=== PATIENT | female | born 1965 | race Caucasian/White ===

== ENCOUNTER → 2017-04-25 08:15 | Outpatient (CLI) | payer MEDICAID, SELFPAY ==
--- NOTE | 2017-04-25 08:20 | US_ITS ---
US abdomen limited: HISTORY: ITS.REASON: RUQ PAIN ORDERING PHYSICIAN: Adam Zeng MD PATIENT AGE: 51 years COMPARISON: None FINDINGS: PANCREAS: Unremarkable. No obvious mass or abnormal fluid collection. No ductal dilatation LIVER: No focal liver lesions demonstrated. Homogeneous echogenicity. No intrahepatic biliary ductal dilatation evident RIGHT KIDNEY: Unremarkable. Normal size and echogenicity. No hydronephrosis GALLBLADDER: No gallstones, gallbladder wall thickening, pericholecystic fluid, or biliary dilatation. IMPRESSION: Negative gallbladder/right upper quadrant ultrasound
== END ==
PROVIDERS: Family Provider Internal Medicine Adolescent Medicine; PCP Nurse Practitioner Family; Visit Provider Internal Medicine Adolescent Medicine
DX: R10.11 Right upper quadrant pain (principal)
CPT/HCPCS: 76705

== ENCOUNTER → 2017-05-02 10:17 | Outpatient (CLI) | payer MEDICAID, SELFPAY ==
--- NOTE | 2017-05-02 10:23 | NM_ITS ---
NM hepatobiliary w pharm HISTORY: ITS.REASON: RUQ PAIN ORDERING PHYSICIAN: Adam Zeng MD PATIENT AGE: 51 years COMPARISON: None DOSE: 8.43 mCi technetium Choletec Fatty meal with ensure No pain reported with fatty meal FINDINGS: Homogeneous activity is present within the hepatic parenchyma. Activity is present in the gallbladder by 15 minutes. Activity is present in the small bowel by 15 minutes. The gallbladder ejection fraction is calculated to be 68% The patient did not report pain or other symptoms with fatty meal. IMPRESSION: Unremarkable hepatobiliary scan and gallbladder ejection fraction. No evidence of common or cystic duct obstruction with normal gallbladder ejection fraction
== END ==
PROVIDERS: Family Provider Internal Medicine Adolescent Medicine; PCP Nurse Practitioner Family; Visit Provider Internal Medicine Adolescent Medicine
DX: R10.11 Right upper quadrant pain (principal)
CPT/HCPCS: 78227; A9537

== ENCOUNTER → 2017-05-20 13:46 | Outpatient (CLI) | payer MEDICAID, SELFPAY ==
--- NOTE | 2017-05-20 13:52 | XR_ITS ---
XR chest 2V HISTORY: ITS.REASON: COUGH,UPPER RT RIB PAIN, ORDERING PHYSICIAN: Rich Hare MD PATIENT AGE: 51 years COMPARISON: None available FINDINGS: The cardiomediastinal silhouette and pulmonary vascularity are within normal limits. The lungs are clear without infiltrates, suspicious nodules, or pleural effusions. No acute bony abnormalities. IMPRESSION: Negative chest, no acute finding
== END ==
PROVIDERS: PCP Internal Medicine Adolescent Medicine; Visit Provider Surgery
DX: Z01.818 Encounter for other preprocedural examination (principal); R13.10 Dysphagia, unspecified; R07.89 Other chest pain; R10.9 Unspecified abdominal pain
CPT/HCPCS: 71046

== ENCOUNTER 2017-05-27 09:37 | Day surgery (SDC) | payer MEDICAID, SELFPAY ==
[2017-05-26 14:56] VITALS: BMI 28.9
[2017-05-27 10:46] VITALS: BP 125/73; PULSE 83; RESP 18; TEMP 37.2; O2SAT 98
[2017-05-27 11:32] LABS: HCG,Quantitative 0 mIU/mL
[2017-05-27 12:24] VITALS: BP 115/68; PULSE 81; RESP 16; TEMP 36.6; O2SAT 97
--- NOTE | 2017-05-27 12:26 | P.PCN_ITS ---
- Procedure: Date: 05/27/17 Procedure Performed:: Esophagogastroduodenoscopy with biopsies Indications:: Patient is a 51-year-old female referred for upper endoscopy. She states that over the past month or so she has had intermittent sporadic right lateral flank thoracoabdominal pain. She underwent gallbladder ultrasound and HIDA scan which were unremarkable. Symptoms are not necessarily related to eating. She was sent for surgical consultation for upper endoscopy. I did order a chest x- ray which was unremarkable for any acute process. Performing Provider:: Rich Hare MD Referring Provider:: Karri Sedation:: Propofol Procedure:: Patient was taken to same-day endoscopy procedure room. She was positioned in a lateral decubitus position. Adequate intravenous sedation was achieved. Olympus endoscope was inserted via the oropharynx and advanced through the esophagus. Overall the esophagus appeared relatively unremarkable. She did have a moderate sliding hiatal hernia. Stomach was cannulated and insufflated. Retroflexion within the stomach revealed a moderate hiatal hernia. Gastric antral mucosal biopsies obtained for CLOtest for H. pylori. She had a couple punctate healing erosions versus ulcerations in the prepyloric location. Biopsies were obtained. Pylorus was traversed and duodenal bulb and duodenal sweep appeared unremarkable. A couple biopsies were obtained within the duodenum. Biopsy was obtained at the gastroesophageal junction and a couple of esophageal biopsies were obtained for microscopic analysis for esophagitis. Endoscope was withdrawn Findings:: Moderate hiatal hernia Punctate prepyloric erosions versus healing ulcerations Recommendations:: Follow-up on histopathology and H. pylori status. PPIs may be beneficial. If symptoms persist may consider CT scan abdomen pelvis possibly including chest. Complications:: None Estimated blood obtained (mL): 3
[2017-05-27 12:34] VITALS: BP 116/63; PULSE 76; RESP 16; TEMP 36.6; O2SAT 96
[2017-05-27 12:48] VITALS: BP 127/88; PULSE 66; RESP 18; TEMP 36.6; O2SAT 95
--- NOTE | 2017-05-27 12:48 | P.PN_ITS ---
[facility] Anesthesia Checklist - Patient Identification Patient Identification: Arm Band - Structural Data Admitted From: Home Planned Operative Procedure/s: egd Consent for Planned Operative Procedure(s) Verified: Yes Verified Documents: Surgical Consent, History and Physical - NPO Status Verified Time NPO: 00:00 - Additional verifications Anesthesia Reactions: No - Airway Assessment C-Spine Mobility Assessed: Yes (mp2) TMJ Mobility Assessed: Yes Dentition: Good Dentition - Neurological Assessment Level of Consciousness: Awake, Alert - Anesthesia Plan Anesthesia Risk discussed: Yes Anesthesia Plan: Verified ASA Class: II Anesthesia Type: MAC [facility] Anesthesia HX I have reviewed the patient's past medical history: Yes Medical History: Reports:: Hyperlipidemia, Hypertension Denies:: Diabetes Mellitus Type 1, Diabetes Mellitus Type 2, Internal Pacemaker, Lung Disease, Seizures Other Medical History: Reports: Hypothyroidism Laterality Cases: Bilateral: Tonsillectomy Other Surgeries: Yes: Colonoscopy. No: Pacemaker *Family Hx:: Hypertension, Cancer
== END 2017-05-27 12:48 | disposition home or self-care (01) ==
LOC: OUTP 09:38
PROVIDERS: Family Provider Internal Medicine Adolescent Medicine; PCP Internal Medicine Adolescent Medicine; Visit Provider Surgery
PROC: 0DJ08ZZ Inspection of Upper Intestinal Tract, Via Natural or Artificial Opening Endoscopic (ICD-10-PCS; CPT 43235; principal; 2017-05-27 10:30)
DX: K92.89 Other specified diseases of the digestive system (principal); K44.9 Diaphragmatic hernia without obstruction or gangrene
CPT/HCPCS: 43239; 84702; 87339

== ENCOUNTER → 2017-10-30 09:59 | Outpatient (CLI) | payer MEDICAID, SELFPAY ==
[2017-10-30 12:46] LABS: Alanine Aminotransferase 19 U/L (12-78); Albumin Level 3.3 gm/dL (3.4-5.0); Alkaline Phosphatase 81 U/L (46-116); Aspartate Amino Transferase 13 U/L (15-37); Bilirubin,Total 0.4 mg/dL (0.2-1.0); Blood Urea Nitrogen 13 mg/dL (7-18); Calcium 8.6 mg/dL (8.5-10.1); Carbon Dioxide 24 mmol/L (21.0-32.0); Chloride 105 mmol/L (98-107); Chol/HDL Ratio 2.7 (1-3.5); Cholesterol 133 mg/dL (140-200); Creatinine,Serum 0.66 mg/dL (0.55-1.02); Estimated Glomerular Filt Rate 94 ml/min (>60); GFR (African American) 114 ML/MIN (>60); Globulin 3.4 gm/dl (1.3-3.2); Glucose 94 mg/dL (74-106); HDL Cholesterol 50 mg/dL (29-89); LDL Cholesterol 48 mg/dL (0-130); Sodium 140 mmol/L (136-145); Total Protein,Serum 6.7 gm/dL (6.4-8.2); Triglycerides 176 mg/dL (30-200); VLDL Cholesterol 35 mg/dL (0-40)
== END ==
PROVIDERS: PCP Internal Medicine Adolescent Medicine; Visit Provider Nurse Practitioner Family
DX: E78.5 Hyperlipidemia, unspecified (principal); E03.9 Hypothyroidism, unspecified
CPT/HCPCS: 36415; 80053; 80061; 84443

== ENCOUNTER → 2017-11-07 08:49 | Outpatient (CLI) | payer MEDICAID, SELFPAY ==
--- NOTE | 2017-11-07 08:51 | MM_ITS ---
MM Dig screening mamm BI w/CAD ORDERING PHYSICIAN : Yomaira Vivas PATIENT AGE: 52 years GENDER: Female COMPARISON: November 2015 and 2014 prior mammogram studies INDICATION: ITS.REASON: SCREENING 52. -control pills. No new complaints. Noncontributory family history TECHNIQUE: Standard CC and MLO images were obtained. R2 CAD reviewed. FINDINGS: Mild asymmetry with mild to moderate residual fibroglandular elements extending from central breast towards upper outer quadrant of breast bilaterally. Similar pattern to previous studies with no new dominant mass nor suspicious calcification nor significant architectural distortion.. . CAD computer review highlights no areas of concern either a similar architecture. IMPRESSION: Stable bilateral mammogram. No new areas of concern Bilateral follow-up one year recommended. BI-RADS Category: 1 Negative RECOMMENDED FOLLOW-UP: 1YR 1 YEAR FOLLOW-UP (A letter has been sent to the patient regarding results of the study.)
== END ==
PROVIDERS: PCP Nurse Practitioner Family; Visit Provider Nurse Practitioner Family
DX: Z12.31 Encounter for screening mammogram for malignant neoplasm of breast (principal)
CPT/HCPCS: 77067

== ENCOUNTER → 2018-11-30 09:35 | Outpatient (CLI) | payer MEDICAID, SELFPAY ==
[2018-11-30 11:22] LABS: Alanine Aminotransferase 13 U/L (12-78); Albumin Level 3.3 gm/dL (3.4-5.0); Alkaline Phosphatase 77 U/L (46-116); Anion Gap 16.8 mEq/L (5-15); Aspartate Amino Transferase 11 U/L (15-37); Bilirubin,Total 0.3 mg/dL (0.2-1.0); Blood Urea Nitrogen 11 mg/dL (7-18); Calcium 8.7 mg/dL (8.5-10.1); Carbon Dioxide 23 mmol/L (21.0-32.0); Chloride 104 mmol/L (98-107); Cholesterol 144 mg/dL (140-200); Creatinine,Serum 0.57 mg/dL (0.55-1.02); Estimated Glomerular Filt Rate 111 ml/min (>60); GFR (African American) 134 ML/MIN (>60); Globulin 3.4 gm/dl (1.3-3.2); Glucose 106 mg/dL (74-106); HDL Cholesterol 48 mg/dL (29-89); LDL Cholesterol 69 mg/dL (0-130); Potassium 3.8 mmoL/L (3.5-5.1); Sodium 140 mmol/L (136-145); Thyroid Stimulating Hormone 3.08 uIU/ml (0.358-3.740); Total Protein,Serum 6.7 gm/dL (6.4-8.2); Triglycerides 137 mg/dL (30-200); VLDL Cholesterol 27 mg/dL (0-40)
== END ==
PROVIDERS: Visit Provider Nurse Practitioner Family
DX: E78.5 Hyperlipidemia, unspecified (principal); E03.9 Hypothyroidism, unspecified
CPT/HCPCS: 36415; 80053; 80061; 84443

== ENCOUNTER → 2019-12-02 09:13 | Outpatient (CLI) | payer OTHER, SELFPAY ==
[2019-12-02 09:48] LABS: Basophils # 0.1 K/mm3 (0-0.2); Basophils % 0.7 % (0.1-2.0); Eosinophils # 0.1 K/mm3 (0.0-0.4); Eosinophils % 0.5 % (0.1-12.0); Hematocrit 41.3 % (37.0-47.0); Hemoglobin 14.3 g/dL (12.2-16.2); Lymphocytes # 1.9 K/mm3 (0.7-4.5); Lymphocytes % 18.2 % (10-50); Mean Corpuscular HGB Conc 34.5 g/dL (31.8-35.4); Mean Corpuscular Hemoglobin 30.2 pg (27.0-31.2); Mean Corpuscular Volume 87.6 fl (81-99); Mean Platelet Volume 6.9 fl (7.4-10.4); Monocytes # 0.4 K/mm3 (0.1-1.0); Monocytes % 4.3 % (1.7-9.3); Neutrophils # 7.8 K/mm3 (1.8-7.8); Neutrophils % 76.4 % (37.0-80.0); Platelet Count 309 K/mm3 (142-424); Red Blood Count 4.72 M/mm3 (4.20-5.40); Red Cell Distribution Width 13.1 % (11.5-17.5); White Blood Count 10.2 K/mm3 (4.8-10.8)
[2019-12-02 11:08] LABS: Chloride 103 mmol/L (98-107); Potassium 4.3 mmoL/L (3.5-5.1); Sodium 136 mmol/L (136-145)
[2019-12-02 11:10] LABS: Alanine Aminotransferase 10 U/L (12-78); Aspartate Amino Transferase 22 U/L (14-36); Blood Urea Nitrogen 10 mg/dl (7-17); Estimated Glomerular Filt Rate 104 ml/min (>60); GFR (African American) 126 ML/MIN (>60)
[2019-12-02 11:11] LABS: Albumin Level 3.8 g/dl (3.5-5.0); Albumin/Globulin Ratio 1.4 (1.1-1.8); Alkaline Phosphatase 75 U/L (38-126); Anion Gap 11.3 mEq/L (5-15); Bilirubin,Total 0.7 mg/dl (0.2-1.3); Calcium 9.2 mg/dl (8.4-10.2); Carbon Dioxide 26 mmol/L (22.0-30.0); Cholesterol 153 mg/dl (140-200); Globulin 2.8 g/dL (1.3-3.2); Glucose 107 mg/dl (74-100); Total Protein,Serum 6.6 g/dl (6.3-8.2); Triglycerides 160 mg/dl (30-150); VLDL Cholesterol 32 mg/dL (0-40)
[2019-12-02 11:41] LABS: Thyroid Stimulating Hormone 2.53 uIU/mL (0.465-4.68)
[2019-12-02 17:43] LABS: Chol/HDL Ratio 2.8 (1-3.5); HDL Cholesterol 55 mg/dl (40-60)
== END ==
PROVIDERS: Visit Provider Nurse Practitioner Family
DX: E78.5 Hyperlipidemia, unspecified (principal); E03.9 Hypothyroidism, unspecified; R30.0 Dysuria; R31.1 Benign essential microscopic hematuria
CPT/HCPCS: 36415; 80053; 80061; 84443; 85025

== ENCOUNTER → 2019-12-09 09:24 | Outpatient (CLI) | payer OTHER, SELFPAY ==
--- NOTE | 2019-12-09 09:26 | MM_ITS ---
PROCEDURE: MM DIG SCREENING MAMM BI W/CAD Digital Breast Tomosynthesis Included CLINICAL INDICATION: SCREENING There is no personal or family history of breast cancer. The patient currently is on control pills. COMPARISON: MG DMSB DIG MAMM-SCREEN FLOYD from 11/18/2014 MG DMSB DIG MAMM-SCREEN FLOYD from 11/20/2015 MG SCBI MM Dig screening mamm BI w/CAD from 11/07/2017 TECHNIQUE: Standard CC and MLO images and 3D Tomosynthesis was obtained. R2 CAD reviewed. FINDINGS: Scattered fibroglandular densities are seen in both breast on a background of primarily fatty breast parenchyma. Glandular elements are most prominent upper outer quadrants. There is no suspicious lesion and no suspicious microcalcifications. IMPRESSION: Fibrofatty parenchyma with no suspicious lesions seen BI-RAD Category: 1 Negative FOLLOW-UP: 1YR 1 Year Follow-up (A letter has been sent to the patient regarding results of the study.) Dictated by: Dr. Silver Tolliver MD 12/14/2019 08:30 Dr. Silver Tolliver MD in [place] 12/14/2019 08:30
== END ==
PROVIDERS: PCP Internal Medicine Adolescent Medicine; Visit Provider Internal Medicine Adolescent Medicine
DX: Z12.31 Encounter for screening mammogram for malignant neoplasm of breast (principal)
CPT/HCPCS: 77063; 77067

== ENCOUNTER → 2020-12-28 10:29 | Outpatient (CLI) | payer OTHER, SELFPAY ==
[2020-12-28 11:06] LABS: Basophils # 0.1 K/mm3 (0-0.2); Eosinophils # 0.1 K/mm3 (0.0-0.4); Hematocrit 41.3 % (37.0-47.0); Hemoglobin 13.7 g/dL (12.2-16.2); Lymphocytes # 2.2 K/mm3 (0.7-4.5); Lymphocytes % 26.5 % (10-50); Mean Corpuscular HGB Conc 33.2 g/dL (31.8-35.4); Mean Corpuscular Hemoglobin 30.2 pg (27.0-31.2); Mean Platelet Volume 7.1 fl (7.4-10.4); Monocytes # 0.3 K/mm3 (0.1-1.0); Monocytes % 3.9 % (1.7-9.3); Neutrophils # 5.6 K/mm3 (1.8-7.8); Neutrophils % 67.6 % (37.0-80.0); Platelet Count 346 K/mm3 (142-424); Red Blood Count 4.54 M/mm3 (4.20-5.40); Red Cell Distribution Width 13.2 % (11.5-17.5); White Blood Count 8.3 K/mm3 (4.8-10.8)
[2020-12-28 11:41] LABS: Alanine Aminotransferase 11 U/L (12-78); Albumin Level 3.7 g/dl (3.5-5.0); Albumin/Globulin Ratio 1.2 (1.1-1.8); Alkaline Phosphatase 88 U/L (38-126); Anion Gap 12.8 mEq/L (5-15); Aspartate Amino Transferase 22 U/L (14-36); Bilirubin,Total 0.8 mg/dl (0.2-1.3); Blood Urea Nitrogen 9 mg/dl (7-17); Calcium 8.9 mg/dl (8.4-10.2); Carbon Dioxide 23 mmol/L (22.0-30.0); Chloride 106 mmol/L (98-107); Chol/HDL Ratio 2.9 (1-3.5); Cholesterol 143 mg/dl (140-200); Estimated Glomerular Filt Rate 128 ml/min (>60); GFR (African American) 155 ML/MIN (>60); Glucose 102 mg/dl (74-100); HDL Cholesterol 50 mg/dl (40-60); Potassium 3.8 mmoL/L (3.5-5.1); Sodium 138 mmol/L (136-145); Total Protein,Serum 6.7 g/dl (6.3-8.2); Triglycerides 118 mg/dl (30-150); VLDL Cholesterol 24 mg/dL (0-40)
[2020-12-28 11:52] LABS: Direct LDL Cholesterol 71.29 mg/dL (100-129)
[2020-12-28 12:13] LABS: Thyroid Stimulating Hormone 2.83 uIU/mL (0.465-4.68)
== END ==
PROVIDERS: PCP Internal Medicine Adolescent Medicine; Visit Provider Internal Medicine Adolescent Medicine
DX: Z00.00 Encounter for general adult medical examination without abnormal findings (principal); E03.9 Hypothyroidism, unspecified; E78.5 Hyperlipidemia, unspecified
CPT/HCPCS: 36415; 80053; 80061; 84443; 85025

== ENCOUNTER → 2021-02-20 08:23 | Outpatient (CLI) | payer OTHER, SELFPAY ==
--- NOTE | 2021-02-20 08:25 | MM_ITS ---
PROCEDURE INFORMATION: Exam: MG Bilateral Screening 3D Mammography Exam date and time: 02/20/2021 8:25 AM Age: 55 years old Clinical indication: Encounter for screening mammogram for malignant neoplasm of breast TECHNIQUE: Imaging protocol: Bilateral screening tomosynthesis and 2D mammography including computer-aided detection (CAD) when performed. COMPARISON: 1. MG MM DIG SCREENING MAMM BI W/CAD 12/09/2019 9:38 AM 2. MG SCBI MM Dig screening mamm BI w/CAD 11/07/2017 9:02 AM 3. MG DMSB DIG MAMM-SCREEN FLOYD 11/20/2015 9:28 AM FINDINGS: MAMMOGRAPHY: Breast composition: There are scattered areas of fibroglandular density. Mass: No suspicious masses. Architectural distortion: No suspicious distortion. Calcifications: No suspicious calcifications. Asymmetric density: None. Skin thickening: None. Axillary adenopathy: None. IMPRESSION: No mammographic evidence of malignancy. Annual screening is recommended unless otherwise clinically indicated. ASSESSMENT: BI-RADS Category 1: Negative
== END ==
PROVIDERS: PCP Internal Medicine Adolescent Medicine; Visit Provider Internal Medicine Adolescent Medicine
DX: Z12.31 Encounter for screening mammogram for malignant neoplasm of breast (principal)
CPT/HCPCS: 77063; 77067

== ENCOUNTER 2021-06-30 10:30 | Emergency (ER) | payer OTHER, SELFPAY ==
[2021-06-30] VITALS (11 sets, daily range): BP systolic 108–145; BP diastolic 55–77; PULSE 57–78; RESP 16–18; TEMP 36.5; O2SAT 95–100; BMI 29.2
--- NOTE | 2021-06-30 10:38 | HMH.EDGENADL ---
ED Disposition Clinical Impression: Peripheral vertigo Qualifiers: Laterality: left Qualified Code(s): H81.392 - Other peripheral vertigo, left ear Disposition: Home, Self-Care Condition on Discharge: Good Instructions: DI for Vertigo Additional Instructions: Antivert, Reglan, diazepam as prescribed. Follow-up with primary care provider, call Friday to make appointment. Return if symptoms worsen. Additional instructions for CONTROLLED SUBSTANCES: You have been prescribed a medication that is a controlled substance. Controlled substances include pain medications known as opiates and sedative nerve medications known as benzodiazepines. Tramadol, fioricet, and gabapentin are also controlled substances. Some common opiates include: Codeine (such as Tylenol #3) Hydrocodone (Vicodin, Lortab, Lorcet, Molina) Oxycodone (Percocet, Percodan, Oxycodone, Oxy IR) Some common benzodiazepines include: Diazepam (Valium) Lorazepam (Ativan) Alprazolam (Xanax) Clonazepam (Klonopin) Oxazepam (Serax) All of these controlled substances are highly addictive and frequently abused. Misuse can and frequently does lead to addiction as well as overdose and . Medication should be stored in a locked cabinet or other secure storage unit. Do not store the medication in a motor vehicle. Short term supplies, 3 days or less, are prescribed because of the highly addictive nature of the medication. Any of the controlled substance medication NOT taken should be disposed of properly and NOT SAVED. The recommended method of disposing of unused medications is: Place the medicines in a sealable plastic bag. If the medicine is a solid, crush it or add water to dissolve it. Add something undesirable (cat litter, coffee grounds, etc.) Dispose of sealed bag in household trash Do not flush or pour unused medicines down a sink or drain. Controlled substances should not be shared, given away or sold. Because of the addictive nature and frequent abuse, these medications are sometimes stolen. These medications should be kept in a safe place where they cannot be stolen. Do not keep them in your car or purse. Lost or stolen prescriptions for controlled substances WILL NOT BE REFILLED in this emergency department, regardless of whether a police report was filed. Prescriptions: Meclizine HCl [Antivert 25mg tablet] 25 mg PO TIDP PRN #15 tab PRN Reason: Vertigo Transmission Status: Pending to [facility] diazePAM [Diazepam 2mg tablets] 2 mg PO TIDP PRN #15 tablet PRN Reason: Vertigo Transmission Status: Sent to [facility] Metoclopramide HCl [Reglan 5mg Tablet] 5 mg PO TIDP PRN #10 tab PRN Reason: Nausea And Vomiting Transmission Status: Pending to [facility] Referrals: Adam Zeng MD [Primary Care Provider] - - Critical Care Critical Care Time: No Attestation: On , the high probability of a clinically significant, sudden or life threatening deterioration of the following system(s) required my full and direct attention, intervention and personal management. The time I documented below is in addition to time spent performing reported procedures but includes the following listed in this critical care notation. Medical Decision Making - Gonsalo Inquiry Pt receiving controlled substance: Yes Gonsalo was queried for this patient: Yes Risks and benefits of using a controlled substance: were discussed with pt by me Vital Signs: 06/30/21 10:31 06/30/21 11:00 06/30/21 11:30 Temperature 97.7 F Temperature Source Oral Pulse Rate 57 L 64 Pulse Rate [Left Radial] 64 Respiratory Rate 18 16 Blood Pressure 132/59 L 138/56 L Blood Pressure [Right Arm] 145/77 H Blood Pressure Mean 83 Blood Pressure Mean [Right Arm] 99 Blood Pressure Source Automatic Cuff Blood Pressure Source [Right Arm] Automatic Cuff Blood Pressure Position Sitting Blood Pressure Position [Right Arm] Sitting
--- NOTE | 2021-06-30 10:39 | PC.NURSE ---
Bernice Robertson, RN at
--- NOTE | 2021-06-30 10:45 | PC.NURSE ---
ED MD at
[2021-06-30 11:37] LABS: Chloride 103 mmol/L (98-107); Potassium 3.3 mmoL/L (3.5-5.1); Sodium 134 mmol/L (136-145)
[2021-06-30 11:40] LABS: Anion Gap 10.3 mEq/L (5-15); Blood Urea Nitrogen 15 mg/dl (7-17); Carbon Dioxide 24 mmol/L (22.0-30.0); Creatinine Clearance Estimated 121 mL/min (50-200); Estimated Glomerular Filt Rate 104 ml/min (>60); GFR (African American) 126 ML/MIN (>60); Glucose 155 mg/dl (74-100)
[2021-06-30 12:13] LABS: Basophils # 0.2 K/mm3 (0-0.2); Basophils % 1.6 % (0.1-2.0); Eosinophils % 0.1 % (0.1-12.0); Hematocrit 42.8 % (37.0-47.0); Hemoglobin 14.5 g/dL (12.2-16.2); Lymphocytes # 1.1 K/mm3 (0.7-4.5); Lymphocytes % 7.6 % (10-50); Mean Corpuscular HGB Conc 33.9 g/dL (31.8-35.4); Mean Corpuscular Hemoglobin 31.2 pg (27.0-31.2); Mean Platelet Volume 7.3 fl (7.4-10.4); Monocytes # 0.5 K/mm3 (0.1-1.0); Monocytes % 3.3 % (1.7-9.3); Neutrophils # 12.7 K/mm3 (1.8-7.8); Neutrophils % 87.3 % (37.0-80.0); Platelet Count 346 K/mm3 (142-424); Red Blood Count 4.65 M/mm3 (4.20-5.40); Red Cell Distribution Width 13.5 % (11.5-17.5); White Blood Count 14.5 K/mm3 (4.8-10.8)
[2021-06-30 12:26] LABS: MANUAL DIFFERENTIAL MANUAL DIFFERENTIAL (MANUAL DIFF)
[2021-06-30 13:09] LABS: Lymphocytes % 10 % (10-50); Monocytes % 1 % (2-9); Neutrophils % 89 % (42-76); Platelet Estimate Normal; Total Cells Counted 100
--- NOTE | 2021-06-30 13:09 | PC.NURSE ---
JARRET Hatfield at BS
[2021-06-30 13:10] LABS: RBC Morphology Normal
== END 2021-06-30 14:41 | disposition home or self-care (01) ==
PROVIDERS: Emergency Provider Emergency Medicine; PCP Internal Medicine Adolescent Medicine
DX: H81.392 Other peripheral vertigo, left ear (principal); R11.2 Nausea with vomiting, unspecified; I10 Essential (primary) hypertension; E78.5 Hyperlipidemia, unspecified; E03.9 Hypothyroidism, unspecified; Z79.899 Other long term (current) drug therapy; Z88.2 Allergy status to sulfonamides; Z82.49 Family history of ischemic heart disease and other diseases of the circulatory system; Z80.9 Family history of malignant neoplasm, unspecified
CPT/HCPCS: 80048; 85007; 85025; 96374; 96375; 99284

== ENCOUNTER → 2022-07-03 13:08 | Outpatient (CLI) | payer OTHER, SELFPAY ==
--- NOTE | 2022-07-03 13:11 | MM_ITS ---
PROCEDURE INFORMATION: Exam: MG Bilateral Screening 3D Mammography Exam date and time: 07/03/2022 1:11 PM Age: 56 years old Clinical indication: Screening examination TECHNIQUE: Imaging protocol: Bilateral Screening tomosynthesis and 2D mammography including computer-aided detection (CAD) when performed. COMPARISON: 1. MG MM DIG SCREENING MAMM BI W/CAD 02/20/2021 8:45 AM 2. MG MM DIG SCREENING MAMM BI W/CAD 12/09/2019 9:38 AM FINDINGS: MAMMOGRAPHY: Breast composition: There are scattered areas of fibroglandular density. Mass: None. Architectural distortion: None. Calcifications: No suspicious calcifications. Asymmetric density: None. Skin thickening: None. Axillary adenopathy: None. IMPRESSION: No mammographic evidence of malignancy. Annual screening is recommended unless otherwise clinically indicated. ASSESSMENT: BI-RADS Category 1: Negative
== END ==
PROVIDERS: PCP Internal Medicine Adolescent Medicine; Visit Provider Internal Medicine Adolescent Medicine
DX: Z12.31 Encounter for screening mammogram for malignant neoplasm of breast (principal)
CPT/HCPCS: 77063; 77067

== ENCOUNTER 2024-11-23 08:56 | Outpatient (CLI) | payer OTHER, SELFPAY ==
--- OUTSIDE RECORDS SUMMARY | 2024-06-05 17:30 | XMS_ITS ---
Author Organization [facility] Address [address] [facility] [address] [place] [address] Care Team Providers Care Children'S Tutor Nursery Name Role Phone Karri Adam Primary Care Provider [phone] Migration, Provider Unavailable Unavailable Allergies Allergen (clinical drug ingredient) Drug/Non Drug Allergy documented on EMR Reaction Allergy Type Onset Date Status SULFA (uncoded) dizziness Allergy Acti ve REASON FOR VISIT [facility] To [facility] Conversion Encounter Medications Medication SIG (Take, Route, [...] [facility] [address] [place] [address] 06/05/2024 Provider Migration Routine medical exam Z00.00 [...] [place] Veronica FDOB: [birth year] (59 yo F)Acc No.[id number]:06/05/2024 Patient: Veronica ARNDT Provider: Darin zapata Migration :1965 A ge:58 Y S ex:Female Date:06/05/2024 Address:[address] [place] [address] [phone] Pcp:Adam Zeng Subjective: * Chief Complaints: * 1 . [facility] To [facility] Conversion Encounter. * Medical History: * Allergies: [...] Electronic signature of Prov ider Migration on 11/23/2024 at 09:15 AM EDT Sign off status: Pending * Provider: Darin zapata Migration Date: 0 06/05/2024 Generated for Danna lemus/Kerry/Jillian on: 0 11/23/2024 09:15 AM EDT
--- OUTSIDE RECORDS SUMMARY | 2024-11-23 04:00 | XMS_ITS ---
Author Organization [facility] Address [address] [place] [address] Care Team Providers Care Brick Setter Operator Name Role Phone Karri Adam Primary Care Provider Yomaira Vivas [phone] Allergies Allergen (clinical drug ingredient) Drug/Non Drug Allergy documented on EMR Reaction Allergy Type Onset Date Status SULFA (uncoded) dizziness Allergy Acti ve REASON FOR VISIT annual check up Medications Medication SIG (Take, Route, Frequency, Duration) Notes Start Date End Date Status Levothyroxine Sodium 88 MCG 1 tab(s) ora lly once a day; Duration: 30 days Active Atorvastatin Calcium 40 MG 1 tab(s) oral ly once a day (at bedtime); Duration: 90 days Active Sprintec 28 0.25-35 MG-MCG 1 tab(s) oral ly once a day; Duration: 84 days Active Fluticasone Propionate 50 MCG/ACT 2 sprays in each nostril once a day; Duration: 30 days 02/18/2023 Active Cetirizine HCl 10 MG 1 tab(s) orally onc e a day at night for allergies; Duration: 90 days Active Vital Signs Temperature 98.0 degrees Fahrenheit 11/24/19 25 Blood pressure systolic 122 mm Hg 11/24/19 25 Blood pressure diastolic 76 mm Hg 025 Heart Rate 80 /min 11/23/2024 Height 5 ft 2.5 in in 11/23/2024 Weight 175 lbs 11/23/2024 BMI 31.49 kg/m2 11/23/2024 Encounters Encounter Location Date Provider Diagnosis [facility] [address] [place] [address] 11/23/2024 Yomaira Vivas Routine medical exam Z00.00 ; Unspecified hypothyroidism E03.9 ; Dyslipidemia, goal LDL below 100 E78.5 ; Chronic allergic rhinitis J30.9 ; BMI 31.0-31.9,adult Z68.31 and Visit for screening mammogram Z12.31 Assessments Encounter Date Diagnosis (ICD Code) Assessment Notes Treatment Notes Treatment Clinical Notes Section Notes 11/23/2024 Routine medical exam (ICD-10 - Z00.00) Recommendations for age reviewed, encouraged mammogram this year 11/23/2024 Unspecified hypothyroidism (ICD-10 - E03.9) continue replacement, labs as noted 11/23/2024 Dyslipidemia, goal LDL below 100 (ICD-10 - E78.5) continue atorvastatin, monitoring labs today 11/23/2024 Chronic allergic rhinitis (ICD-10 - J30.9) well controlled 11/23/2024 BMI 31.0-31.9,adult (ICD-10 - Z68.31) complicates all aspects of care, stable, encouraged weight loss 11/23/2024 Visit for screening mammogram (ICD-10 - Z12.31) Plan Of Treatment Pending Test Test Name Order Date M-Liver Panel 11/23/2024 M-Lipid Panel 11/23/2024 M-Thyroid Stimulating Hormone 11/23/2024 Mammogram: Screening 11/23/2024 Next Appt Details Follow Up: 1 Year, Reason: Progress Notes * Veronica NOYOLA FDOB: [birth year] (59 yo F)Acc No.[id number]:11/23/2024 Progress Notes Patient: Veronica ARNDT Provider: KENDELL Islas :1965 A ge:59 Y S ex:Female Date:11/23/2024 Address:[address] [place] [address] [id number] Pcp:Adam Zeng Subjective: * Chief Complaints: * 1 . Annual check up. * HPI: g en: 59 year old female presents for annual exam, labs, refills. No acute concerns. She continues to FU with since underoing nephrectomy for donation to her son. She has done very well over the past year, no significant changes WRT health. Labs done at in August indicated stable renal function with GFR 70-75 Still having menstrual cycles regularly on OCP. Chronic hypothyroidism and HLD, tolerating medications. Working on weight loss but is stable compared to last year. * ROS: A LLERGY: no R unny nose. n o E ar fullness. n o S inus congestion. F UNCTIONAL STATUS: ADLS I ndependent for all ADL/IADL. R ESPIRATORY: no T achypnea. n o S hortness of breath. n o?Chest pain. n o C hest congestion. n o C ough. C ARDIOLOGY: no D izziness. n o C hest pain. n o P alpitations. n o S hortness of breath. V aricose veins l egs bilaterally. ? C ONSTITUTIONAL: no F ever. n o W eakness, a t baseline. W eight loss i ntentional . E NDOCRINOLOGY: no F atigue. E NT: no S ore throat. n o S inus pain. G ASTROENTEROLOGY: no N ausea. n o A bdominal pain. n o B lood in stool. M USCULOSKELETAL: no L eg cramps. N EUROLOGY: no H eadache. n o T ingling numbness. ? U ROLOGY: Dysuria a t times. * Medical History: H ypothyroidism, HLD, Benign Familial hematuria, Psoriasis, Nephrectomy done for donation 2022. * Surgical History: t onsillectomy , Colonoscopy 07/2022, Right Nephrectomy- Donor 08/29/2022-. * Hospitalization/Major Diagno stic Procedure: H - [place] 1998, [place]- Right Nephrectomy- Donor 08/29/2022. * Family History: F ather: alive. M other: , diabetes, thyroid removed. P aternal Grand Father: . P aternal Grand Mother: . M aternal Grand Father: . M aternal Grand Mother: . S iblings: Brother- , Hep C, Lung CancerBrother-. C hildren: alive, Wegners Granulomatosis. 1 brother(s) , 2 sister(s) - healthy. 1 son(s) . . * Social History: S moking A re you a:: nonsmoker. R ecreational drug use: no. Exercise: yes, walking. Home smoke detector use: yes. Caffeine: no. Living Will: No. Alcohol: no. Sexually active: yes. Travel outside [place]: no. * Medications: T aking Cetirizine HCl 10 MG Tablet 1 tab(s) orally once a day at night for allergies , Taking Fluticasone Propionate 50 MCG/ACT Suspension 2 sprays in each nostril once a day , Taking Levothyroxine Sodium 88 MCG Tablet 1 tab(s) orally once a day , Taking Atorvastatin Calcium 40 MG Tablet 1 tab(s) orally once a day (at bedtime) , Taking Sprintec 28 0.25-35 MG-MCG Tablet 1 tab(s) orally once a day , Discontinued Tamiflu 75 MG Capsule 1 cap(s) orally 2 times a day , Medication List reviewed and reconciled with the patient * Allergies: S ULFA: dizziness. Objective: * Vitals: N urse: be, Pain: 0, Temp: 98.0, RR: 16, HR: 80, BP: 122/76, Ht: 5 ft 2.5 in, Wt: 175, BMI:31.49. * Examination: G eneral Examination: General P leasant and Cooperative, NAD on RA,. Oral cavity: n o lesions, OMMP, poor dentition. Heart: R RR, No m/r/g/h, Nl S1S2, No JVD, 2(+) symmetric pulses,. HEENT: p harynx and tonsils normal, TM's normal. Lungs: L CTAB, No wheezes, crackles or rhonchi, Good air movement,. Abdomen: S oft, NTND, BSNA, No organomegaly or peritoneal signs.. Neurologic Exam: Alert and oriented x 3. Skin: w ithout acute rashes. Peripheral pulses: n ormal (2+) bilaterally. Extremities: n o clubbing, no edema,, normal ROM, soft varicose veins bilat. neck S upple without Meningeal Signs, No LAD, No JVD, No Goiter, No Bruit,. Psych N ormal Mood/Affect. Assessment: * Assessment: 1. R outine medical exam - Z00.00 (Primary) 2 . U nspecified hypothyroidism - E03.9 3 . D yslipidemia, goal LDL below 100 - E78.5 4 . C hronic allergic rhinitis - J30.9 5 . B ND 31.0-31.9,adult - Z68.31 6. V isit for screening mammogram - Z12.31 Plan: * Treatment: 2. U nspecified hypothyroidism L AB: M-Thyroid Stimulating Hormone Clinical Notes: continue replacement, labs as noted 3. D yslipidemia, goal LDL below 100 L AB: M-Liver Panel L AB: M-Lipid Panel Clinical Notes: continue atorvastatin, monitoring labs today 4. C hronic allergic rhinitis Clinical Notes: well controlled 5. B ND 31.0-31.9,adult Clinical Notes: complicates all aspects of care, stable, encouraged weight loss 6. V isit for screening mammogram I maging: Mammogram: Screening * Preventive Medicine: Immunizations: I nfluenza u p to date for season. T dap U TD. H epatitis A C ompleted series. S hingrix D iscussed and will consider at . C OVID C ompleted series. Screening / Special Tests: M ammogram d ue. P ap Smear 2 023. C olonoscopy 2 023. L charity Cancer Screening N ot indicated - nonsmoker. * Follow Up: 1 Year * * Sign off status: Completed true * Provider: KENDELL Islas Date: 11/23/2024 Generated for Danna lemus/Kerry/eTransmitting on: 11/23/2024 09:15 AM EDT History and Physical Notes * HPI (History of Present Illness) Category Sub-Category Detail Notes Category Not es gen 59 year old female presents for annual exam, labs, refills. No acute concerns. She continues to FU with since underoing nephrectomy for donation to her son. She has done very well over the past year, no significant changes WRT health. Labs done at in August indicated stable renal function with GFR 70-75 Still having menstrual cycles regularly on OCP. Chronic hypothyroidism and HLD, tolerating medications. Working on weight loss but is stable compared to last year Examination Category Sub-Category Detail Notes Category Not es General Examination HEENT: pharynx and tonsils normal, TM's normal Heart: RRR, No m/r/g/h, Nl S1S2, No JVD, 2(+) symmetric pulses, Lungs: LCTAB, No wheezes, c rackles or rhonchi, Good air movement, Abdomen: Soft, NTND, BSNA, No organomegaly or peritoneal signs. Extremities: no clubbing, no catarina a,, normal ROM, soft varicose veins bilat Skin: without acute rashes Neurologic Exam: Alert and oriented x 3 Oral cavity: no lesions, OMMP, po or dentition Peripheral pulses: normal (2+) bilatera lly neck Supple without Menin geal Signs, No LAD, No JVD, No Goiter, No Bruit, General Pleasant and Coopera tive, NAD on RA, Psych Normal Mood/Affect
--- OUTSIDE RECORDS SUMMARY | 2024-11-23 09:16 | XMS_ITS | Patient Health Record ---
Author Organization [facility] Address [address] [place] [address] Care Team Providers Care Purchasing And Claims Supervisor Name Role Phone Adam Zeng Primary Care Provider Yomaira Vivas Unavailable [phone] Migration, Provider Unavailable Unavailable Allergies Allergen (clinical drug ingredient) Drug/Non Drug Allergy documented on EMR Reaction Allergy Type Onset Date Status SULFA (uncoded) dizziness Allergy Acti ve Reason For Referral No Information Medications Medication SIG (Take, Route, Frequency, Duration) Notes Start Date End Date Status Cetirizine HCl 10 MG 1 tab(s) orally onc e a day at night for allergies; Duration: 90 days Active Levothyroxine Sodium 88 MCG 1 tab(s) [...] a day; Duration: 30 days 02/18/2023 Active Immunizations Vaccine Route Administration Date Status Comme nts Influenza-Fluzone 3+years (NON-MEDICARE) IM Intramuscular 10/21/2016 Administered Influenza-Fluzone 3+years (NON-MEDICARE) IM Intramuscular 10/16/2017 Administered Influenza-Fluzone 3+years (NON-MEDICARE) IM Intramuscular 10/22/2018 Administered Problems Problem Type SNOMED Code ICD Code Onset Dates Problem Status W/U Status Risk Notes Problem Essential hypertension (67969721) Essential (primary) hypertension (I10) Active confirmed Problem Essential hypertension (94015017) HTN (hypertension), benign (I10) Active confirmed Problem Psoriasis (3945175) Psoriasis (L40.9) Active confirmed Problem Seasonal allergy (256372247) Seasonal allergies (J30.2) Active confirmed Problem BMI 25-29 - overweight (750914472) BMI 27.0-27.9,adult (Z68.27) Active confirmed Problem Allergic rhinitis (81054186) Chronic allergic rhinitis (J30.9) Active confirmed Problem Body mass index 30.00 to 34.99 (181855883984303) BMI 31.0-31.9,adult (Z68.31) Active confirmed Problem Amenorrhea (77740941) Amenorrhea (N91.2) Active confirmed Problem Microscopic hematuria (407006007) Benign microscopic hematuria (R31.1) Active confirmed Problem Hypothyroidism (94003189) Unspecified hypothyroidism (E03.9) Active confirmed Problem Dyslipidemia (389004969) Dyslipidemia, goal LDL below 100 (E78.5) Active confirmed Problem Arthritis of left knee (2191124617907804 ) Arthritis of knee, left (M17.12) Active confirmed Vital Signs Heart Rate 80 /min 11/23/2024 Temperature 98.0 degrees Fahrenheit 11/23/2024 Blood pressure diastolic 76 mm Hg 11/23/2024 Height 5 ft 2.5 in in 11/23/2024 Blood pressure systolic 122 mm Hg 11/23/2024 Weight 175 lbs 11/23/2024 BMI 31.49 kg/m2 11/23/2024 Encounters Encounter Location Date Provider Diagnosis [facility] [address] [place], [place] [address] 06/05/2024 Provider Migration Routine medical exam Z00.00 ; Dyslipidemia, goal LDL below 100 E78.5 ; Recurrent acute serous otitis media, unspecified laterality H65.07 and Chronic allergic rhinitis J30.9 [facility] [address] [place] [address] 11/23/2024 Yomaira Vivas Routine medical exam Z00.00 ; Unspecified hypothyroidism E03.9 ; Dyslipidemia, goal LDL below 100 E78.5 ; Chronic allergic rhinitis J30.9 ; BMI 31.0-31.9,adult Z68.31 and Visit for screening mammogram Z12.31 [facility] [address] [address] 04/14/2024 Yomaira Vivas [facility] [address] [address] 08/18/2024 Yomaira Vivas [facility] [address] [address] 10/18/2024 Adam Zeng Dyslipidemia, goal L DL below 100 E78.5 and Routine medical exam Z00.00 Assessments Encounter Date Diagnosis (ICD Code) Assessment Notes Treatment Notes Treatment Clinical Notes Section Notes 06/05/2024 Routine medical exam (ICD-10 - Z00.00) 10/18/2024 Dyslipidemia, goal LDL below 100 (ICD-10 - E78.5) 11/23/2024 Routine medical exam (ICD-10 - Z00.00) Recommendations for age reviewed, encouraged mammogram this year 11/23/2024 Unspecified hypothyroidism (ICD-10 - E03.9) continue replacement, labs as noted 11/23/2024 Dyslipidemia, goal LDL below 100 (ICD-10 - E78.5) continue atorvastatin, monitoring labs today 06/05/2024 Dyslipidemia, goal LDL below 100 (ICD-10 - E78.5) 06/05/2024 Recurrent acute serous otitis media, unspecified laterality (ICD-10 - H65.07) 10/18/2024 Routine medical exam (ICD-10 - Z00.00) 06/05/2024 Chronic allergic rhinitis (ICD-10 - J30.9) 11/23/2024 Chronic allergic rhinitis (ICD-10 - J30.9) well controlled 11/23/2024 BMI 31.0-31.9,adult (ICD-10 - Z68.31) complicates all aspects of care, stable, encouraged weight loss 11/23/2024 Visit for screening mammogram (ICD-10 - Z12.31) Plan Of Treatment Pending Test Test Name Order Date Mammogram : Bilateral 11/18/2023 H-URINE CULTURE 11/02/2014 H-CMP 10/01/2014 H-CMP 10/12/2015 H-CMP 02/11/2014 H-LIPID PANEL 10/01/2014 H-LIPID PANEL 02/11/2014 H-LIPID PANEL 10/12/2015 H-TSH 10/12/2015 H-TSH 10/01/2014 H-TSH 02/11/2014 H-RHEUMATOID ARTHRITIS PROFILE 7 H-URINALYSIS 11/02/2014 C-URINE CULTURE 04/19/2017 H-CCCP 08/14/2016 M-Complete Blood Count Auto Diff 021 M-Comprehensive Metabolic Panel 12/29/19 21 M-Liver Panel 11/23/2024 M-Lipid Panel 11/23/2024 M-Lipid Panel 12/28/2020 M-Thyroid Stimulating Hormone 12/28/2020 M-Thyroid Stimulating Hormone 11/23/2024 Mammogram: Screening 11/23/2024 Future Test Test Name Order Date H-CBC with AUTO DIFF 07/01/2013 H-CMP 07/01/2013 H-LIPID PANEL 07/01/2013 H-TSH 07/01/2013 H-CMP 09/21/2013 H-LIPID PANEL 09/21/2013 Insurance Providers Payer Name Payer Address Payer Phone Subscriber Number Group Number Insured Name Patient Relationship to Insured Coverage Start Date Coverage End Date [employer] [address] [place] [address] [id number] Veronica Puga Self - patient is the insured Medications Administered Medication Instructions Date of Administration Dosage Notes Dexamethasone 4mg Injection 02/18/2023 4 mg Medical (General) History Medical History History ICD Code Hypothyroidism HLD Benign Familial hematuria Psoriasis Nephrectomy done for donation 2022 Surgical History Surgery Date(Month/Year) tonsillectomy Colonoscopy 07/2022 Right Nephrectomy- Donor 08/29/2022- Hospitalization History Reason Date(Month/Year) - Right Nephrectomy- Donor 08/29/2022 [facility]- [facility]
--- OUTSIDE RECORDS SUMMARY | 2024-11-23 09:16 | XMS_ITS ---
Author Organization [facility] Address [address] [place] [address] Care Team Providers Care Fleet Technician Name Role Phone Adam Zeng MD Primary Care Provider [phone] Transplant Episode Kidney Donor [facility] ([place], [place]) [facility] Organ Donated: Right Kidney Recovered on 08/29/2022 Marked as Active Follow-up on 08/29/2022 Kidney CoordinatorValdemar Gtz RN Fax: N/A Email: N/A Care Team Name Role Phone Fax Email Valdemar Gtz RN Kidney Coordinator [phone] N/A N/A Events Post-Donation Pre-Donation Admitted: 08/29/2022 Referred: 04/17/2022 Recovered: 08/29/2022 Evaluation began: 06/13/2022 Discharged: 09/01/2022 Committee: 08/27/2022
--- OUTSIDE RECORDS SUMMARY | 2024-11-23 09:16 | XMS_ITS | Clinical Summary ---
Author Organization [facility] Address [address] [place] [address] Care Team Providers Care Elastic Assembler Name Role Phone Adam Zeng MD Primary Care Provider + [phone] Allergies Active Allergy Reactions Criticality Noted Date Comments Sulfa Drugs Other - please docum ent in the comment field Low 07/02/2022 Passed out and made really sick Medications levothyroxine (Synthroid, Levoxyl) 75 MCG tablet Take 1 tablet (75 mcg) by mouth 1 (one) time each day before breakfast. Active atorvastatin (Lipitor) 40 MG tablet Take 1 tablet (40 mg) by mouth 1 (one) time each day. Active cetirizine (ZyrTEC) 10 MG tablet 1 tab(s) orally once a day at night for allergies for 90 days Active methocarbamol (Robaxin) 750 MG tablet Take 1 tablet (750 mg) by mouth 4 (four) times a day for 10 days. 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 Kidney donor 08/01/2022 Overview (08/01/2022): Added automatically from request for surgery [id number] Encounter for evaluation to be transplant donor 07/02/2022 Hyperlipidemia 07/02/2022 Other specified hypothyroidism 07/02/2022 Social History Tobacco Use Types Packs/Day Years Used Date Smoking Tobacco: Never Smokeless Tobacco: Never Tobacco Cessation:Counseling Given: Not Answered Alcohol Use Standard Drinks/Week Comments Never 0 (1 standard drink = 0.6 oz pur e alcohol) PHQ-2 Answer Date Recorded Patient Health Questionnaire-2 Score 0 08/21/2023 CAGE ASSESSMENT Answer Date Recorded Cage unable to access Not on file 08/30/2022 Cage max number of drinks Not on file 2022 Cage Beverages a week Not on file 08/30/2022 Have you ever felt you should CUT down on your d rinking? 0 08/30/2022 Have you been ANNOYED by people criticizing your drinking? 0 08/30/2022 Have you felt GUILTY about your drinking? 0 08/30/2022 Have you had a drink first t leann in the morning (EYE-WET WASH ASSEMBLER) to steady your nerves or to get rid of a hangover? 0 08/30/2022 CAGE Questionnaire Score 0 023 PHQ-2A Answer Date Recorded Patient Health Questionnaire-2 Score 0 02/06/2023 Comments No Sex and Gender Information Value Date Recorded Sex Assigned at Not on file Legal Sex Female 8:43 PM EDT Gender Identity Not on file Sexual Orientation Not on file Last Filed Vital Signs Vital Sign Reading Time Taken Comments Blood Pressure 130/75 08/06/2024 6:57 AM EDT Pulse 71 08/06/2024 6:57 AM EDT Temperature 36.4 C (97.6 F) 08/06/2024 6:57 AM EDT Respiratory Rate 16 08/06/2024 6:57 AM EDT Oxygen Saturation 97% 08/06/2024 6:57 AM EDT Inhaled Oxygen Concentration - - Weight 73.9 kg (163 lb) 08/06/2024 3:00 PM EDT Height 157.5 cm (5' 2 ) 08/06/2024 3:00 PM EDT Body Mass Index 29.81 08/06/2024 3:00 PM EDT Plan of Treatment Health Maintenance Due Date Last Done Comments [facility]-/Child/Adol SDOH Screenings 1965 [facility]- SDOH Screenings 10/05/1983 [facility]-Adult SDOH Screenings 10/05/1983 [facility]-Hepatitis B Vaccines (1 of 3 - 19+ 3-dose series) 1984 [facility]-Pap Smear 1986 [facility]-Cervical Cancer Screening 10/05/1995 [facility]-HPV/Cotest 10/05/1995 CT Colonography 2010 Colonoscopy 2010 FIT-DNA 2010 FIT 2010 FOBT 2010 Sigmoidoscopy 2010 [facility]-Colorectal Cancer Screening 2010 [facility]-Breast Cancer Screening 10/05/2015 [facility]-Pneumococcal Vaccine: 50+ Years (1 of 1 - PCV) 10/05/2015 [facility]-Zoster Vaccines (1 of 2) 10/05/2015 [facility]-DTaP,Tdap,and Td Vaccines (2 - Td or Tdap) 07/27/2017 07/28/2007 [facility]-Depression Screening 08/20/2024 08/21/2023 HQJ-ZYMHA-10 Vaccine ( season) 2024 10/26/2020, 05/25/2020, 04/27/2020 [facility]-Influenza Vaccine (#1) 11/01/202411/03, 11/28/2022, 10/21/2021, Additional history exists [facility]-Hepatitis A Vaccines Aged Out 07/09/2018, 08/2017 No longer eligible based on patient's age to complete this topic [facility]-HIV Screening Completed 08/21/2022, 07/02/2022 [facility]-Hepatitis C Screening Completed 08/21/2022, 04/2022 [facility]-Obesity Intervention Completed 025, 08/21/2023, 02/06/2023, Additional history exists HPV Vaccines Aged Out No longer eligi ble based on patient's age to complete this topic [facility]-HIB Vaccines Aged Out No longer e ligible based on patient's age to complete this topic [facility]-IPV Vaccines Aged Out No longer e ligible based on patient's age to complete this topic [facility]-Rotavirus Vaccines Aged Out No lo nger eligible based on patient's age to complete this topic Procedures Procedure Name Priority Date/Time Associated Diagnosis Comments HEPATITIS C ANTIBODY W/REFLEX TO HCV QUANT PCR Routine 08/21/2022 12:24 PM EDT Encounter for evaluation to be transplant donor HIV 1/2 ANTIBODY/ANTIGEN SCREEN WITH REFLEX TO HIV I/II DIFFERENTIATION Routine 08/21/2022 12:24 PM EDT Encounter for evaluation to be transplant donor from Last 3 Months or Most Recently Relevant to Health Maintenance Results * HIV 1/2 Antibody/Antigen Screen (08/21/2022 12:24 PM EDT) [facility] HIV 1 & 2 Antibody/Antigen Screen Non Reactive Non Reactive 08/21/2022 2:02 PM EDT [facility] Comment:Screening for HIV 1 & 2 antibodies, and P24 antigen is NONREACTIVE. No confirmatory testing is required. Blood Venous blood specimen / Unknown Venipuncture / Unknown 08/21/2022 12:24 PM EDT 08/21/2022 1:15 PM EDT Thad Jung MD LAB BLOOD ORDERABLES Final Res ult Performing Organization Address City/[facility] Co de Phone Number HEALTHCARE [facility] [address] [place] [address] * Hepatitis C Antibody (08/21/2022 12:24 PM EDT) [facility] Hepatitis C Antibody Negative Negative 08/21/2022 2:00 PM EDT [facility] Blood Venous blood specimen / Unknown Venipuncture / Unknown 08/21/2022 12:24 PM EDT 08/21/2022 1:14 PM EDT Thad Jung MD LAB BLOOD ORDERABLES Final Res ult Performing Organization Address City/[facility]/ZIP Co de Phone Number [facility] [address] [place] [address] from Last 3 Months or Most Recently Relevant to Health Maintenance Insurance [employer] Member Subscriber Plan / Payer (Ef fective 2022-Present) Name:Veronica Puga Relation to Subscriber:Self Name:Veronica Puga Payer ID:Not on file Group ID:Not on file Type:Not on file Address: [address] [place] [address] Advance Directives * Full Code (Latest Code Status on File) Date Activated Date Inactivated Comments 08/29/2022 11:33 AM 09/01/2022 6:12 PM Question Answer Comments Patient has decision-making capacity? Yes Care Teams Elastic Assembler Relationship Specialty Start Date End Date Adam Zeng MD [address] [place] [address] PCP - General Internal Medicine 07/02/22
[2024-11-23 10:06] LABS: Albumin Level 4.3 g/dl (3.5-5.0)
[2024-11-23 10:09] LABS: Alanine Aminotransferase 18 U/L (12-78); Alkaline Phosphatase 91 U/L (38-126); Aspartate Amino Transferase 27 U/L (14-36); Bilirubin,Direct 0.1 mg/dl (0.0-0.4); Bilirubin,Indirect 1.0 mg/dL (0.0-0.9); Bilirubin,Total 1.1 mg/dl (0.2-1.3); Bilirubin,Unconjugated 1.0 mg/dL (0.0-1.1); Cholesterol 161 mg/dl (140-200); HDL Cholesterol 53 mg/dl (40-60); Total Protein,Serum 7.1 g/dl (6.3-8.2); Triglycerides 185 mg/dl (30-150)
[2024-11-23 10:39] LABS: Thyroid Stimulating Hormone 2.75 uIU/mL (0.465-4.68)
== END 2024-11-23 23:59 | disposition home or self-care (01) ==
LOC: LAB 08:59
PROVIDERS: PCP Nurse Practitioner Family; Visit Provider Nurse Practitioner Family
DX: E03.9 Hypothyroidism, unspecified (principal); E78.5 Hyperlipidemia, unspecified
CPT/HCPCS: 36415; 80061; 80076; 84443

== ENCOUNTER 2024-12-14 10:19 | Outpatient (CLI) | payer OTHER, SELFPAY ==
--- OUTSIDE RECORDS SUMMARY | 2024-06-05 17:30 | XMS_ITS ---
Author Organization [facility] Address [address] [facility] [address] [place] [address] Care Team Providers Care Butadiene Converter Operator Name Role Phone Karri Adam Primary Care Provider [phone] Migration, Provider Unavailable Unavailable Allergies Allergen (clinical drug ingredient) Drug/Non Drug Allergy documented on EMR Reaction Allergy Type Onset Date Status SULFA (uncoded) dizziness Allergy Acti ve REASON FOR VISIT [facility] To [facility] Conversion Encounter Medications Medication SIG (Take, Route, Frequency, Duration) Notes Start Date End Date Status Cetirizine HCl 10 MG 1 tab(s) orally onc e a day at night for allergies; Duration: 90 days Active Sprintec 28 0.25-35 MG-MCG 1 tab(s) oral ly once a day; Duration: 84 days Active Tamiflu 75 MG 1 cap(s) orally 2 ti mes a day; Duration: 5 days 04/14/2024 Active Fluticasone Propionate 50 MCG/ACT 2 sprays in each nostril once a day; Duration: 30 days 02/18/2023 Active Levothyroxine Sodium 88 MCG 1 tab(s) ora lly once a day; Duration: 30 days Active Atorvastatin Calcium 40 MG 1 tab(s) oral ly once a day (at bedtime); Duration: 90 days Active Encounters Encounter Location Date Provider Diagnosis [facility] [address] [facility] [place] [address] [place] [address] 06/05/2024 Provider Migration Routine medical exam Z00.00 ; Dyslipidemia, goal LDL below 100 E78.5 ; Recurrent acute serous otitis media, unspecified laterality H65.07 and Chronic allergic rhinitis J30.9 Assessments Encounter Date Diagnosis (ICD Code) Assessment Notes Treatment Notes Treatment Clinical Notes Section Notes 06/05/2024 Routine medical exam (ICD-10 - Z00.00) 06/05/2024 Dyslipidemia, goal LDL below 100 (ICD-10 - E78.5) 06/05/2024 Recurrent acute serous otitis media, unspecified laterality (ICD-10 - H65.07) 06/05/2024 Chronic allergic rhinitis (ICD-10 - J30.9) Plan Of Treatment Medication Medication Name Sig Start Date Stop Date Notes Cetirizine HCl 10 MG 1 tab(s) orally onc e a day at night for allergies; Duration: 90 days Sprintec 28 0.25-35 MG-MCG 1 tab(s) oral ly once a day; Duration: 84 days Tamiflu 75 MG 1 cap(s) orally 2 ti mes a day; Duration: 5 days 04/14/2024 Fluticasone Propionate 50 MCG/ACT 2 sprays in each nostril once a day; Duration: 30 days 02/18/2023 Levothyroxine Sodium 88 MCG 1 tab(s) ora lly once a day; Duration: 30 days Atorvastatin Calcium 40 MG 1 tab(s) oral ly once a day (at bedtime); Duration: 90 days Progress Notes * [place] Veronica FDOB: 6 (59 yo F)Acc No.[id number]:06/05/2024 Patient: Veronica ARNDT Provider: Darin zapata Migration :1965 A ge:58 Y S ex:Female Date:06/05/2024 Address:[address] [place] [address] [id number] Pcp:Adam Zeng Subjective: * Chief Complaints: * 1 . [facility] To [facility] Conversion Encounter. * Medical History: * Allergies: S ULFA: dizziness. Objective: * Vitals: Assessment: * Assessment: 1. R outine medical exam - Z00.00 (Primary) 2 . D yslipidemia, goal LDL below 100 - E78.5 3 . R ecurrent acute serous otitis media, unspecified laterality - H65.07 4 . C hronic allergic rhinitis - J30.9 Plan: * Treatment: 2. D yslipidemia, goal LDL below 100 Refill Atorvastatin Calcium Tablet, 40 MG, 1 tab(s), orally, once a day (at bedtime), 90 days, 90, Refills 3. 3. R ecurrent acute serous otitis media, unspecified laterality Refill Fluticasone Propionate Suspension, 50 MCG/ACT, 2 sprays, in each nostril, once a day, 30 days, 1, Refills 3. 4. C hronic allergic rhinitis Refill Cetirizine HCl Tablet, 10 MG, 1 tab(s), orally, once a day at night for allergies, 90 days, 90, Refills 3. 5. O thers Start Tamiflu Capsule, 75 MG, 1 cap(s), orally, 2 times a day, 5 days, 10, Refills 0; S tart Levothyroxine Sodium Tablet, 88 MCG, 1 tab(s), orally, once a day, 30 days, 30, Refills 2. * * Electronic signature of Prov ider Migration on 12/14/2024 at 10:22 AM EDT Sign off status: Pending * Provider: Darin zapata Migration Date: 0 06/05/2024 Generated for Danna lemus/Kerry/Jillian on: 1 10:22 AM EDT
--- OUTSIDE RECORDS SUMMARY | 2024-11-23 04:00 | XMS_ITS ---
Author Organization [facility] Address [address] [place] [address] Care Team Providers Care Electrical Project Manager Name Role Phone Adam Zeng Primary Care Provider Yomaira Vivas [phone] Allergies Allergen (clinical drug ingredient) Drug/Non Drug Allergy documented on EMR Reaction Allergy Type Onset Date Status SULFA (uncoded) dizziness Allergy Acti ve Results Component Value Reference Range Notes M-Thyroid Stimulating Hormon e Reviewed date:11/24/2024 04:25:02 PM Interpretation: Performing Lab: Notes/Report: TSH 2.75 0.465-4.68 uIU/mL M-Lipid Panel Reviewed date:11/24/2024 04:25:02 PM Interpretation: Performing Lab: Notes/Report: Patient Fasting? Y TRIG 185 30-150 mg/dl CHOL 161 140-200 mg/dl DLDL 71.30 100-129 mg/dL VLDL 37 0-40 mg/dL HDL 53 40-60 mg/dl CHLHDL 3.0 1-3.5 M-Liver Panel Reviewed date:11/24/2024 04:25:02 PM Interpretation: Performing Lab: Notes/Report: BILIT 1.1 0.2-1.3 mg/dl BILID 0.1 0.0-0.4 mg/dl AST 27 14-36 U/L ALT 18 12-78 U/L TP 7.1 6.3-8.2 g/dl ALB 4.3 3.5-5.0 g/dl ALP 91 38-126 U/L BILII 1.0 0.0-0.9 mg/dL BILIU 1.0 0.0-1.1 mg/dL BILICON 0.0 0.0-0.3 mg/dL REASON FOR VISIT annual check up Medications [...] 11/23/2024 Encounters Encounter Location Date Provider Diagnosis [facility] [address] [facility] [address] [place] [address] 11/23/2024 Yomaira Vivas Routine medical exam Z00.00 [...] Treatment Pending Test Test Name Order Date Mammogram: Screening 11/23/2024 Next Appt Details Follow Up: 1 Year, Reason: Progress Notes * Veronica NOYOLA FDOB: [birth year] (59 yo F)Acc No.[id number]:11/23/2024 Progress Notes Patient: Veronica ARNDT Provider: KENDELL Islas :1965 A ge:59 Y S ex:Female Date:11/23/2024 Address:[address] [place] [address] [facility] [id number] Pcp:Adam Zeng Subjective: * Chief Complaints: * [...] Diagno stic Procedure: H - [facility] 1998, - Right Nephrectomy- Donor 08/29/2022. * Family History: [...] allergic rhinitis - J30.9 5 . B DE 31.0-31.9,adult - Z68.31 6. V isit for screening mammogram - Z12.31 Plan: * Treatment: 2. U nspecified hypothyroidism L AB: M-Thyroid Stimulating Hormone Value Reference Range T hyroid Stimulating Hormone 2.75 0.465-4.68 - uIU/mL * Estephania Hopson 11/24/2024 04:24:52 PM EDT > Patient informedThis lab was reviewed by Estephania Hopson on 11/24/2024 at 16:25 PM EDT Clinical Notes: continue replacement, labs as noted??3.?Dyslipidemia, goal LDL below 100?LAB: M-Liver Panel* Value Reference Range B ilirubin,Total 1.1 0.2-1.3 - mg/dl * B ilirubin,Direct 0.1 0.0-0.4 - mg/dl * A spartate Amino Transferase 27 14-36 - U/L * A lanine Aminotransferase 18 12-78 - U/L * T otal Protein,Serum 7.1 6.3-8.2 - g/dl * A lbumin Level 4.3 3.5-5.0 - g/dl * A lkaline Phosphatase 91 38-126 - U/L * Estephania Hopson 11/24/2024 04:24:52 PM EDT > Patient informedThis lab was reviewed by Estephania oHpson on 11/24/2024 at 16:25 PM EDT ?LAB: M-Lipid Panel* Value Reference Range T riglycerides 185 H 30-150 - mg/dl * C holesterol 161 140-200 - mg/dl * L DL Cholesterol 71.30 L 100-129 - mg/dL * V LDL Cholesterol 37 0-40 - mg/dL * H DL Cholesterol 53 40-60 - mg/dl * C hol/HDL Ratio 3.0 1-3.5 - * Estephania Hopson 11/24/2024 04:24:52 PM EDT > Patient informedThis lab was reviewed by Estephania Hopson on 11/24/2024 at 16:25 PM EDT Clinical Notes: continue atorvastatin, monitoring labs today??4.?Chronic allergic rhinitis? Clinical Notes: well controlled??5.?BMI 31.0-31.9,adult? Clinical Notes: complicates all aspects of care, stable, encouraged weight loss??6.?Visit for screening mammogram?Imaging: Mammogram: Screening* * Preventive Medicine: Immunizations: I nfluenza u p to date for season. T dap U TD. H epatitis A C ompleted series. S hingrix D iscussed and will consider at [facility]. C OVID C ompleted series. Screening / Special Tests: M ammogram d ue. P ap Smear 2 023. C olonoscopy 2 023. L charity Cancer Screening N ot indicated - nonsmoker. * Follow Up: 1 Year * * Sign off status: Completed true * Provider: KENDELL Islas Date: 0 11/23/2024 Generated for Danna lemus/Kerry/Jillian on: 1 10:22 AM EDT History and Physical Notes * [...]
--- OUTSIDE RECORDS SUMMARY | 2024-12-14 10:23 | XMS_ITS | Patient Health Record ---
Author Organization [facility] Address [address] [place] [address] [place] [address] Care Team Providers Care Uniform Maker Name Role Phone Adam Zeng Primary Care Provider Yomaira Vivas Unavailable [phone] Migration, Provider Unavailable Unavailable Allergies Allergen (clinical drug ingredient) Drug/Non Drug Allergy documented on EMR Reaction Allergy Type Onset Date Status SULFA (uncoded) dizziness Allergy Acti ve Results Component Value Reference Range Notes M-Liver Panel Reviewed date:11/24/2024 04:25:02 PM Interpretation: Performing Lab: Notes/Report: BILIT 1.1 0.2-1.3 mg/dl BILID 0.1 0.0-0.4 mg/dl AST 27 14-36 U/L ALT 18 12-78 U/L TP 7.1 6.3-8.2 g/dl ALB 4.3 3.5-5.0 g/dl ALP 91 38-126 U/L BILII 1.0 0.0-0.9 mg/dL BILIU 1.0 0.0-1.1 mg/dL BILICON 0.0 0.0-0.3 mg/dL M-Lipid Panel Reviewed date:11/24/2024 04:25:02 PM Interpretation: Performing Lab: Notes/Report: Patient Fasting? Y TRIG 185 30-150 mg/dl CHOL 161 140-200 mg/dl DLDL 71.30 100-129 mg/dL VLDL 37 0-40 mg/dL HDL 53 40-60 mg/dl CHLHDL 3.0 1-3.5 M-Thyroid Stimulating Hormon e Reviewed date:11/24/2024 04:25:02 PM Interpretation: Performing Lab: Notes/Report: TSH 2.75 0.465-4.68 uIU/mL Reason For Referral No Information Medications Medication SIG (Take, Route, Frequency, Duration) Notes Start Date End Date Status Levothyroxine Sodium 88 MCG 1 tab(s) ora lly once a day; Duration: 30 days Active Cetirizine HCl 10 MG 1 tab(s) orally onc e a day at night for allergies; Duration: 90 days Active Atorvastatin Calcium 40 MG 1 [...] W/U Status Risk Notes Problem Essential hypertension (82830351) Essential (primary) hypertension (I10) Active confirmed Problem Essential hypertension (19281022) HTN (hypertension), benign (I10) Active confirmed Problem Psoriasis (6380357) Psoriasis (L40.9) Active confirmed Problem Seasonal allergy (237189937) Seasonal allergies (J30.2) Active confirmed Problem BMI 25-29 - overweight (150246979) BMI 27.0-27.9,adult (Z68.27) Active confirmed Problem Allergic rhinitis (23615734) Chronic allergic rhinitis (J30.9) Active confirmed Problem Body mass index 30.00 to 34.99 (518876074695474) BMI 31.0-31.9,adult (Z68.31) Active confirmed Problem Amenorrhea (95651358) Amenorrhea (N91.2) Active confirmed Problem Microscopic hematuria (921861708) Benign microscopic hematuria (R31.1) Active confirmed Problem Hypothyroidism (36857024) Unspecified hypothyroidism (E03.9) Active confirmed Problem Dyslipidemia (340817837) Dyslipidemia, goal LDL below 100 (E78.5) Active confirmed Problem Arthritis of left knee (6715119354149322 ) Arthritis of knee, left (M17.12) Active confirmed Vital Signs Heart Rate 80 /min 11/23/2024 Temperature 98.0 degrees Fahrenheit 11/23/2024 Blood pressure diastolic 76 mm Hg 11/23/2024 Height 5 ft 2.5 in in 11/23/2024 Blood pressure systolic 122 mm Hg 11/23/2024 Weight 175 lbs 11/23/2024 BMI 31.49 kg/m2 11/23/2024 Encounters Encounter Location Date Provider Diagnosis [facility] [address] [place] [facility] [address] [place] [address] 06/05/2024 Provider Migration Routine medical exam Z00.00 ; Dyslipidemia, goal LDL below 100 E78.5 ; Recurrent acute serous otitis media, unspecified laterality H65.07 and Chronic allergic rhinitis J30.9 [facility] [address] [place] [facility] [address] [place] [address] 11/23/2024 Yomaira Castilloence Routine medical exam Z00.00 ; Unspecified hypothyroidism E03.9 ; Dyslipidemia, goal LDL below 100 E78.5 ; Chronic allergic rhinitis J30.9 ; BMI 31.0-31.9,adult Z68.31 and Visit for screening mammogram Z12.31 [facility] [address] [address] 04/14/2024 [facility] [address] [address] 08/18/2024 [facility] [address] [address] 10/18/2024 Adam Zeng Dyslipidemia, goal L DL below 100 E78.5 and Routine medical exam Z00.00 [facility] [address] [place] [address] [place], [place] [address] 11/24/2024 Adam Zeng Chronic allergic rhinitis J30.9 Assessments Encounter Date Diagnosis (ICD Code) Assessment Notes Treatment Notes Treatment Clinical Notes Section Notes 11/23/2024 Unspecified hypothyroidism (ICD-10 - E03.9) continue replacement, labs as noted 06/05/2024 Routine medical exam (ICD-10 - Z00.00) 10/18/2024 Dyslipidemia, goal LDL below 100 (ICD-10 - E78.5) 11/23/2024 Routine medical exam (ICD-10 - Z00.00) Recommendations for age reviewed, encouraged mammogram this year 11/24/2024 Chronic allergic rhinitis (ICD-10 - J30.9) 06/05/2024 Dyslipidemia, goal LDL below 100 (ICD-10 - E78.5) 06/05/2024 Recurrent acute serous otitis media, unspecified laterality (ICD-10 - H65.07) 10/18/2024 Routine medical exam (ICD-10 - Z00.00) 11/23/2024 Dyslipidemia, goal LDL below 100 (ICD-10 - E78.5) continue atorvastatin, monitoring labs today 06/05/2024 Chronic allergic rhinitis (ICD-10 - J30.9) 11/23/2024 Chronic allergic rhinitis (ICD-10 - J30.9) well controlled 11/23/2024 BMI 31.0-31.9,adult (ICD-10 - Z68.31) complicates all aspects of care, stable, encouraged weight loss 11/23/2024 Visit for screening mammogram (ICD-10 - Z12.31) Plan Of Treatment Pending Test Test Name Order Date Mammogram : Bilateral 11/18/2023 H-URINE CULTURE 11/02/2014 H-CMP 10/01/2014 H-CMP 02/11/2014 H-CMP 10/12/2015 H-LIPID PANEL 10/12/2015 H-LIPID PANEL 02/11/2014 H-LIPID PANEL 10/01/2014 H-TSH 02/11/2014 H-TSH 10/01/2014 H-TSH 10/12/2015 H-RHEUMATOID ARTHRITIS PROFILE 7 H-URINALYSIS 11/02/2014 C-URINE CULTURE 04/19/2017 H-CCCP 08/14/2016 M-Complete Blood Count Auto Diff 021 M-Comprehensive Metabolic Panel 12/29/19 21 M-Lipid Panel 12/28/2020 M-Thyroid Stimulating Hormone 12/28/2020 Mammogram: Screening 11/23/2024 Future Test Test Name Order Date H-CBC with AUTO DIFF 07/01/2013 H-CMP 07/01/2013 H-LIPID PANEL 07/01/2013 H-TSH 07/01/2013 H-CMP 09/21/2013 H-LIPID PANEL 09/21/2013 Insurance Providers Payer Name Payer Address Payer Phone Subscriber Number Group Number Insured Name Patient Relationship to Insured Coverage Start Date Coverage End Date [facility] [address] [place] [address] [id number] Veronica Puga Self - patient is the insured Medications Administered Medication Instructions Date of Administration Dosage Notes Dexamethasone 4mg Injection 02/18/2023 4 mg Medical (General) History Medical History History ICD Code Hypothyroidism HLD Benign Familial hematuria Psoriasis Nephrectomy done for donation 2022 Surgical History Surgery Date(Month/Year) tonsillectomy Colonoscopy 07/2022 Right Nephrectomy- Donor 08/29/2022- Hospitalization History Reason Date(Month/Year) - Right Nephrectomy- Donor 08/29/2022 [facility] 1998
--- OUTSIDE RECORDS SUMMARY | 2024-12-14 10:23 | XMS_ITS ---
Author Organization [facility] Address [address] [place] [address] Care Team Providers Care Director Equipment Name Role Phone Adam Zeng MD Primary Care Provider [phone] Transplant Episode Kidney Donor [facility] ([place], [place]) [facility] Organ Donated: Right Kidney Recovered on 08/29/2022 Marked as Active Follow-up on 08/29/2022 Kidney CoordinatorValdemar Gtz RN Fax: N/A Email: N/A Care Team Name Role Phone Fax Email Valdemar Gtz RN Kidney Coordinator [phone] N/A N/A Events Post-Donation Pre-Donation Admitted: 08/29/2022 Referred: 04/17/2022 Recovered: 08/29/2022 Evaluation began: 06/13/2022 Discharged: 09/01/2022 Committee: 08/27/2022
--- OUTSIDE RECORDS SUMMARY | 2024-12-14 10:23 | XMS_ITS | Clinical Summary ---
Author Organization [facility] Address [address] [place] [address] Care Team Providers Care Four H Agent Name Role Phone Adam Zeng MD Primary Care Provider + [phone] Allergies Active Allergy Reactions Criticality Noted Date [...] (08/01/2022): Added automatically from request for surgery [id number] Encounter for evaluation to be transplant donor [...] drink first t leann in the morning (EYE-BRIGADIER) to steady your nerves or to get [...] Health Maintenance Due Date Last Done Comments [facility]-Infant/Child/Adol SDOH Screenings 1965 [facility]- SDOH Screenings 10/05/1983 [...] Tdap) 07/27/2017 07/28/2007 [facility]-Depression Screening 08/20/2024 08/21/2023 [id number]-62 Vaccine ( season) 2024 10/26/2020, 05/25/2020, 04/27/2020 [...] 1/2 Antibody/Antigen Screen (08/21/2022 12:24 PM EDT) [facility] HIV 1 & 2 Antibody/Antigen Screen Non Reactive Non Reactive 08/21/2022 2:02 PM EDT [facility] Comment:Screening for HIV 1 & 2 antibodies, and P24 antigen is NONREACTIVE. No confirmatory testing is required. Blood Venous blood specimen / Unknown Venipuncture / Unknown 08/21/2022 12:24 PM EDT 08/21/2022 1:15 PM EDT Thad Jung MD LAB BLOOD ORDERABLES Final Res ult Performing Organization Address City/[facility] [address]/[facility] Co de Phone Number HEALTHCARE [facility] [address] [place] [address] * Hepatitis C Antibody (08/21/2022 12:24 PM EDT) [facility] Hepatitis C Antibody Negative Negative 08/21/2022 2:00 PM EDT [facility] Blood Venous blood specimen / Unknown Venipuncture / Unknown 08/21/2022 12:24 PM EDT 08/21/2022 1:14 PM EDT Thad Jung MD LAB BLOOD ORDERABLES Final Res ult Performing Organization Address City/[facility]/ZIP Co de Phone Number [facility]ARE [facility] [address] [place] [address] from Last 3 Months or Most Recently Relevant to Health Maintenance Insurance [employer] Member Subscriber Plan / Payer (Ef fective 2022-Present) Name:Veronica Puga Relation to Subscriber:Self Name:Veronica Puga Payer ID:Not on file Group ID:Not on file Type:Not on file Address: [address] [place] [address] Advance Directives * Full Code (Latest Code Status on File) Date Activated Date Inactivated Comments 08/29/2022 11:33 AM 09/01/2022 6:12 PM Question Answer Comments Patient has decision-making capacity? Yes Care Teams Four H Agent Relationship Specialty Start Date End Date Adam Zeng MD [address] [place] [address] PCP - General Internal Medicine 07/02/22
--- NOTE | 2024-12-14 10:30 | MM_ITS ---
PROCEDURE INFORMATION: Exam: MG Bilateral Screening 3D Mammography Exam date and time: 12/14/2024 10:42 AM Age: 59 years old Clinical indication: Screening examination TECHNIQUE: Imaging protocol: Bilateral Screening tomosynthesis and 2D mammography including computer-aided detection (CAD) when performed. COMPARISON: 1. MG MM DIG SCREENING MAMM BI W/CAD 07/03/2022 1:11 PM 2. MG MM DIG SCREENING MAMM BI W/CAD 02/20/2021 8:45 AM FINDINGS: MAMMOGRAPHY: Breast composition: There are scattered areas of fibroglandular density. Mass: None. Architectural distortion: None. Calcifications: No suspicious calcifications. Asymmetric density: None. Skin thickening: None. Axillary adenopathy: None. IMPRESSION: No mammographic evidence of malignancy. Annual screening is recommended unless otherwise clinically indicated. ASSESSMENT: BI-RADS Category 1: Negative.
== END 2024-12-14 23:59 | disposition home or self-care (01) ==
LOC: RAD 10:19
PROVIDERS: PCP Nurse Practitioner Family; Visit Provider Nurse Practitioner Family
DX: Z12.31 Encounter for screening mammogram for malignant neoplasm of breast (principal); R92.323 Mammographic fibroglandular density, bilateral breasts
CPT/HCPCS: 77063; 77067